=== PATIENT | female | born 1995 | race American Indian/Alaskan Native ===

== ENCOUNTER 2019-07-25 12:50 | Outpatient (CLI) | payer SELFPAY ==
[2019-07-25] MEDS ORDERED: LACTATED RINGERS 1,000 ML IV ONE (12:57)
[2019-07-25 13:07] VITALS: BP 102/61
[2019-07-25 13:27] LABS: Bilirubin,Urine NEG (Negative); Blood,Urine NEG (Negative); Color,Urine Yellow (Yellow); Mucus,Urine FEW /HPF; Protein,Urine <15 mg/dL mg/dL (Negative)
[2019-07-25 13:41] LABS: Amphetamine Screen,Urine PRESUMPTIVE NEGATIVE; Benzodiazepines Screen,Urine PRESUMPTIVE NEGATIVE; Cannabinoid Screen,Urine PRESUMPTIVE NEGATIVE; Cocaine Screen,Urine PRESUMPTIVE NEGATIVE; Methadone Screen,Urine PRESUMPTIVE NEGATIVE; Opiate Screen,Urine PRESUMPTIVE NEGATIVE
--- NOTE | 2019-07-25 18:36 | Ultrasound Report ---
OB ultrasound. 07/25/2019. HISTORY: OB evaluation. FINDINGS: A single viable intrauterine in the cephalic position is dated 29 weeks 4 days an d has heart tones of 146 bpm. The placenta is anteriorly located on the right. evaluation demonstrates no gross anomaly. Abdominal circumference is small (8%). Estimated feta l weight of 1356 g is 30%. survey demonstrates no gross anomaly. Amniotic fluid index is normal at 12.7 cm. IMPRESSION: 1. Single viable intrauterine dated 29 weeks 4 days. 2. Abdominal circumference 8%. Signer Name: Parth Alexander MD Signed: 07/25/2019 6:31 PM Workstation Name: [id number]
== END 2019-07-25 18:28 | disposition home or self-care (01) ==
LOC: TRG 12:50 → EDBD 12:50 → TRG 12:51
PROVIDERS: ATTEND Obstetrics & Gynecology
DX: O47.03 False labor before 37 completed weeks of gestation, third trimester (principal); Z3A.29 29 weeks gestation of pregnancy
CPT/HCPCS: 76805; 80307; 81001